=== PATIENT | female | born 1950 | race Caucasian/White ===

== ENCOUNTER → 2017-10-01 | Outpatient (CLI) | payer OTHER ==
[~2017-10-01] MED LIST: BAYER CHEWABLE81 MG PO; LIPITOR 20 MG T20 M1 PO; LOVASTATIN 20 M20 MG PO; METFORMIN HCL500 MG PO; POLYMYXIN B/TMP10 ML OPHTHALMIC
== END ==
LOC: M.RAD 15:03
DX: Z12.31 Encounter for screening mammogram for malignant neoplasm of breast (principal)

== ENCOUNTER 2017-12-25 23:07 | Emergency (ER) | payer OTHER ==
[~2017-12-25] VITALS: Ht 167.6 cm; Wt 98.4 kg
[~2017-12-25 23:07] MED LIST changes: -LOVASTATIN 20 M20 MG PO
[2017-12-25] MEDS ORDERED: LOVASTATIN 20 M20 MG PO (23:27)
[2017-12-26 00:11] VITALS: BP 113/59
== END 2017-12-26 00:12 | disposition home or self-care (01) ==
LOC: M.ERS 23:07
DX: S00.212A Abrasion of left eyelid and periocular area, initial encounter (principal); H11.32 Conjunctival hemorrhage, left eye; E11.9 Type 2 diabetes mellitus without complications; Z85.71 Personal history of Hodgkin lymphoma; W22.8XXA Striking against or struck by other objects, initial encounter; Y93.89 Activity, other specified; Y92.096 Garden or yard of other non-institutional residence as the place of occurrence of the external cause; Y99.8 Other external cause status

== ENCOUNTER → 2019-07-28 | Outpatient (CLI) | payer OTHER ==
[~2019-07-28] MED LIST changes: +LOVASTATIN 20 M20 MG PO
== END ==
LOC: M.RAD 07-14 09:00
DX: Z12.31 Encounter for screening mammogram for malignant neoplasm of breast (principal); M85.88 Other specified disorders of bone density and structure, other site; Z78.0 Asymptomatic menopausal state